=== PATIENT | male | born 1995 | race African-American/Black ===

== ENCOUNTER 2018-06-30 16:46 | Emergency (ER) | payer OTHER ==
[~2018-06-30] VITALS: Ht 177.8 cm; Wt 75.0 kg
[2018-06-30] MEDS ORDERED: SODIUM CHLORIDE 0.9% 1,000 ML IV ONE (17:10)
[2018-06-30] MEDS ORDERED: HALOPERIDOL LACTATE 5MG/ML VIAL IM ONE ×2 (17:15→17:30)
[2018-06-30] MEDS ORDERED: LORAZEPAM 2MG/ML CPJ IV ONE (17:15)
[2018-06-30 17:45] LABS: CHLORIDE 110 mEq/L (98-107)
[2018-06-30 17:46] LABS: BASOPHILS % 0.3 % (0.0-2.0); EOSINOPHILS % 0.4 % (0.0-5.0); HEMOGLOBIN. 14.6 g/dL (14.0-18.0); LYMPHOCYTES % 29.8 % (20.0-50.0); MEAN CORPUSCULAR HEMOGLOBIN 32.3 pg (28.0-32.0); MEAN CORPUSCULAR VOLUME 95.3 fL (80.0-94.0); MEAN PLATELET VOLUME 8.1 fl (7.4-10.4); MONOCYTES % 3.7 % (2.0-8.0); NEUTROPHILS % 65.8 % (40.0-76.0); PLATELET 245 x1000/uL (130-400); RED BLOOD CELL COUNT 4.52 mill/uL (4.7-6.1); RED CELL DISTRIBUTION WIDTH 12.9 % (11.6-14.6)
[2018-06-30 17:52] LABS: ETHANOL BLOOD 208 mg/dL
[2018-06-30] MEDS ORDERED: POTASSIUM CHLORIDE 20MEQ TABLET SR PO ONE (18:15)
[2018-06-30 18:47] LABS: CLARITY URINE CLEAR (CLEAR); COLOR URINE YELLOW (YELLOW); KETONES URINE NEGATIVE (NEGATIVE); LEUKOCYTE ESTERASE URINE NEGATIVE (NEGATIVE); NITRITE URINE NEGATIVE (NEGATIVE); OCCULT BLOOD URINE 1+ (NEGATIVE); PROTEIN URINE 1+ (NEGATIVE); SPECIFIC GRAVITY URINE 1.015 (1.005-1.030); UROBILINOGEN URINE 0.2 E.U./dL (0.2-1.0)
[2018-06-30 19:13] LABS: METHADONE URINE SCREEN NEGATIVE (NEGATIVE); OPIATES URINE SCREEN NEGATIVE (NEGATIVE)
[2018-06-30 19:14] LABS: *AMPHETAMINES SCREEN URINE NEGATIVE (NEGATIVE); *BARBITURATES SCREEN URINE NEGATIVE (NEGATIVE); *BENZODIAZEPINES SCREEN URINE PRESUMTIVE POSITIVE (NEGATIVE); *COCAINE SCREEN URINE NEGATIVE (NEGATIVE); CANNABINOID URINE SCREEN PRESUMTIVE POSITIVE (NEGATIVE); PHENCYCLIDINE URINE SCREEN NEGATIVE (NEGATIVE)
[2018-06-30 22:14] VITALS: BP 140/71
== END 2018-06-30 23:32 | disposition home or self-care (01) ==
LOC: ER 16:46 → EDBD 16:46 → ER 23:32
DX: T51.0X1A Toxic effect of ethanol, accidental (unintentional), initial encounter (principal); E87.6 Hypokalemia; Z88.0 Allergy status to penicillin; Y92.018 Other place in single-family (private) house as the place of occurrence of the external cause; Y90.7 Blood alcohol level of 200-239 mg/100 ml
CPT/HCPCS: 36415; 80053; 80305; 81003; 85025; 96372; 96374; 99283; G0482; J1630; J2060; J7030

== ENCOUNTER 2025-02-15 14:44 | Emergency (ER) | payer BC, OTHER ==
[~2025-02-15] VITALS: Ht 180.3 cm; Wt 110.0 kg
[2025-02-15 14:55] VITALS: O2SAT 100
[2025-02-15] MEDS ORDERED: ACET-2708 MT (17:29)
[2025-02-15 17:51] VITALS: BP 128/87; PULSE 77; RESP 16; TEMP 36.7; O2SAT 100
[2025-02-15] MEDS: KETOROLAC 30MG/ML VIAL IM ONE (17:53)
== END 2025-02-15 18:03 | disposition home or self-care (01) ==
LOC: ER 14:44
DX: S09.90XA Unspecified injury of head, initial encounter (principal); Z88.0 Allergy status to penicillin; X58.XXXA Exposure to other specified factors, initial encounter; Y93.89 Activity, other specified; Y92.89 Other specified places as the place of occurrence of the external cause; Y99.8 Other external cause status
CPT/HCPCS: 99285; 70450; 73030; 73060; 96372; J1885